=== PATIENT | male | born 1990 | race African-American/Black ===

== ENCOUNTER → 2017-05-22 08:52 | Emergency (ER) | payer OTHER ==
[~2017-05-22 08:52] MED LIST: Ondansetron INJ* 2 MG/ML VIAL IV ONE; levETIRAcetam IV* 500 MG/5 ML VIAL ONE
--- NOTE | 2017-05-22 09:39 | ED ---
Seizure - HPI Summary HPI Summary: A 27 y/o M presents to ED after a seizure this am upon waking up and again at work onset [employer], unwitnessed fist seizure however witnessed second seizure as someone called EMS. Brought in via ambulance. In ED, pt states he feels OK. Denies biting his tongue. 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 Recent med change from 500mg of Keppra to 1,000mg of Keppra at last visit in ED ~[address] Kyle, but has not in "a long time." States he did not take take his medication this morning after his first seizure however after being asked a second time states he did take his medication this morning. Last visit ~1 month ago Keppra level was low and only 3.2. Complains of some nausea at this time and an abrasion to his left face from fall. Unsure what he hit it on. Denies any other symptoms. Is A&Ox3. No other PMHx besides seizures. Denies drug, tobacco or alcohol abuse besides marijuana. Unknown etiology of his seizures. - History Of Current Complaint Chief Complaint: EDSeizure Time Seen by Provider: 05/22/17 09:11 Hx Obtained From: Patient, EMS Onset/Duration: Sudden Onset, Lasting Minutes Severity Of Seizure: Self-Limited Character: Generalized Clonic-Tonic Aggravating Factor(s): Meds Non-compliant, Other - possible exposure to cleaning chemicals at work Alleviating Factor(s): Spontaneous Resolution Related History: Similar Episode/Dx As - prior seizures - Allergies/Home Medications Allergies/Adverse Reactions: Allergies Allergy/AdvReac Type Severity Reaction Status Date / Time No Known Allergies Allergy Verified 04/02/17 12:36 PMH/Surg Hx/FS Hx/Imm Hx Endocrine/Hematology History: Denies: Hx Diabetes, Hx Anemia Cardiovascular History: Denies: Hx Hypertension Neurological History: Reports: Hx Seizures, Other Neuro Impairments/Disorders - HX OF SEIZURES - Surgical History Surgery Procedure, Year, and Place: none - Immunization History Date of Tetanus Vaccine: 2006 Date of Influenza Vaccine: 2011 Immunizations Up to Date: Yes Infectious Disease History: Yes Infectious Disease History: Denies: Traveled Outside the [place] in Last 30 Days - Family History Known Family History: Negative: Cardiac Disease, Hypertension - Social History Alcohol Use: None Hx Substance Use: Yes Substance Use Type: Reports: Marijuana Hx Tobacco Use: No Smoking Status (MU): Never Smoked Tobacco Review of Systems Constitutional: Negative Eyes: Negative ENT: Negative Cardiovascular: Negative Respiratory: Negative Positive: Nausea Musculoskeletal: Negative Positive: Headache All Other Systems Reviewed And Are Negative: Yes Physical Exam Triage Information Reviewed: Yes Vital Signs On Initial Exam: Initial Vitals Temp Pulse Resp BP Pulse Ox 99.4 F 84 18 109/66 98 05/22/17 09:02 05/22/17 09:02 05/22/17 09:02 05/22/17 09:02 05/22/17 09:02 Vital Signs Reviewed: Yes Appearance: Positive: No Pain Distress, Well-Nourished, Ill-Appearing - appears post ictal which improved throughout visit Skin: Positive: Warm, Skin Color Reflects Adequate Perfusion, Dry, Other - abrasion to skin to the left of left eye, no bleeding. no fb.. Negative: Cold, Numb, Cyanosis @, Pale, Erythema @ Head/Face: Positive: Normal Head/Face Inspection Eyes: Positive: Normal, EOMI, YE - slightly constricted however reactive to light, Conjunctiva Clear ENT: Positive: Normal ENT inspection, Hearing grossly normal, Pharynx normal, TMs normal, Other - did not bite tongue Neck: Positive: Supple, Nontender Respiratory/Lung Sounds: Positive: Clear to Auscultation, Breath Sounds Present. Negative: Rales, Rhonchi, Wheezes Cardiovascular: Positive: Normal, RRR, Pulses are Symmetrical in both Upper and Lower Extremities. Negative: Murmur, Rub Abdomen Description: Positive: Nontender, Soft Bowel Sounds: Positive: Present Musculoskeletal: Positive: Normal, Strength/ROM Intact - FROM. Negative: Pain @ Neurological: Positive: Normal - no acute neuro deficits. follows command, Sensory/Motor Intact, Alert, Oriented to Person Place, Time, CN Intact II-III, Facial Symmetry, Speech Normal Psychiatric: Positive: Affect/Mood Appropriate - post ictal at first however re- examined and normal mental status - [place] Coma Scale Best Eye Response: 4 - Spontaneous Best Motor Response: 6 - Obeys Commands Best Verbal Response: 5 - Oriented Coma Scale Total: 15 Diagnostics - Vital Signs Vital Signs Temp Pulse Resp BP Pulse Ox 05/22/17 09:02 99.4 F 84 18 109/66 98 - Laboratory Result Diagrams: 05/22/17 09:35 05/22/17 09:35 Lab Statement: Any lab studies that have been ordered have been reviewed, and results considered in the medical decision making process. - EKG EKG Cardiac Rate: NL EKG Rhythm: Sinus Rhythm EKG Interpretation: early repolarization pattern, read at 0935 EKG Comparison: No Significant Change - to previous EKG on 04/02/17 Re-Evaluation - Re-Evaluation First Eval Re-Evaluation Time: 11:17 Comment: was much more coherent and less post-ictal. feeling good. updated on lab results. feels better after zofran Second Eval Re-Evaluation Time: 12:15 Change: Improved - doing much better, without complaints, eating and drinking, aware of lab findings and thryroid results. understands and is in agreement with plan. Course/Dx - Course Course Of Treatment: labs and keppra level obtained. given zofran for nausea. seizure care precautions in place. initiated IV acces and placed on patient monitor. EKG obtained and normal without change from previous. Spoke with Dr Kyle who stated to give 500mg IV of Keppra and if labs are in check without other cause of seizure safe to d/c and follow up. Labs unremarkable with slight decrease of .33 TSH, T4 obtained also low. Dr Torres and Saroj do not believe this is the cause of his seizures however does require follow up. Rest of labs normal. Possible medication non compliance as patient has been to ED multiple times with seizures and low Keppra level. Last Keppra level 04/02 was 3.2. Continue Keppra 1000mg at home. Level was checked, pending results. Patient improved throughout ED stay. Aware of worsening signs and symptoms. In agreement with plan. Follow up [facility] by end of the week. Repeat thyroid tests. Fluids and Keppra. Return if symptoms persist, worsen or return even after medication. - Diagnoses Differential Diagnosis/HQI/PQRI: Positive: Known Seizure Disorder, Other - mediation non compliance seizure, infection Provider Diagnoses: Seizure - Physician Notifications Discussed Care of Patient With: Dr Brian Miramontes Time Discussed With Above Provider: 10:10 Instructed by Provider To: Other - give Keppra IV 500mg and follow up, if no other obvious sign of cause of seizure besides medication non compliance and if patient is stable Discharge - Discharge Plan Condition: Stable Disposition: HOME Patient Education Materials: Recurrent Seizures in Adults (ED) Referrals: No Primary Care Phys,NOPCP [Primary Care Provider] - Ranjit Kyle MD [Medical Doctor] - [facility] [Outside] Additional Instructions: Take medication Keppra as directed, do not miss a dose. Follow up and make appointment with Dr Kyle. Follow up with primary care doctor for re-check on thyroid levels by the end of the week. If you have another seizure or recurrent seizure, new or worsening symptoms, please seek medical attention and return to ED promptly.
[2017-05-22 09:52] LABS: Hematocrit 42 % (42-52); Hemoglobin 13.8 g/dl (14.0-18.0); Mean Corpuscular HGB Conc 33 g/dl (31-36); Mean Corpuscular Hemoglobin 31 pg (27-31); Mean Corpuscular Volume 95 fL (80-94); Mean Platelet Volume 7 um3 (7.4-10.4); Red Blood Count 4.41 10^6/ul (4.0-5.4); Red Cell Distribution Width 13 % (10.5-15); White Blood Count 6.8 10^3/ul (3.5-10.8)
[2017-05-22 10:05] LABS: Albumin 3.9 g/dL (3.2-5.2); BUN/Creatinine Ratio 8.6 (8-20); Calcium 8.7 mg/dL (8.6-10.3); EGFR African American 107.4 (>60); EGFR Non-African American 83.5 (>60); Globulin 2.5 g/dL (2-4); Magnesium 1.8 mg/dL (1.9-2.7); Potassium 3.7 mmol/L (3.5-5.0); Total Bilirubin 0.7 mg/dL (0.2-1.0); Total Protein 6.4 g/dL (6.4-8.9)
[2017-05-22 10:39] LABS: TSH (Thyroid Stimulating Horm) 0.33 mcIU/mL (0.34-5.60)
[2017-05-22 13:38] VITALS: BP 143/94
[2017-05-22 13:43] LABS: T4 5.42 mcg/mL (6.09-12.23)
== END | disposition home or self-care (01) ==
LOC: ED 08:52
DX: R56.9 Unspecified convulsions (principal); R51 Headache
CPT/HCPCS: 36415; 80053; 80177; 83605; 83735; 84436; 84443; 85025; 85610; 93005; 96374; 99282; J2405

== ENCOUNTER 2017-11-04 07:07 | Emergency (ER) | payer SELFPAY ==
[2017-11-04] MEDS ORDERED: LORazepam INJ* 2 MG/ML 1 ML VIAL IV PUSH ONE (07:20)
[2017-11-04] MEDS ORDERED: LORazepam INJ* 2 MG/ML 1 ML VIAL ONE (07:20)
[2017-11-04] MEDS ORDERED: levETIRAcetam IV* 1,000 MG in NS 0.9% 100 ML* 100 ML IVPB ONE (07:43)
[2017-11-04 08:01] LABS: ABS Basophils 0 10^3/ul (0-0.2); ABS Eosinophils 0 10^3/ul (0-0.6); ABS Lymphocytes 0.8 10^3/ul (1.0-4.8); ABS Monocytes 0.3 10^3/ul (0-0.8); ABS Neutrophils 11.2 10^3/ul (1.5-7.7); ABS Nucleated RBC 0 10^3/ul; Eosinophil % 0 % (0-6); Hematocrit 43 % (42-52); Hemoglobin 14.2 g/dl (14.0-18.0); Lymphocyte % 6.8 % (25-47); Mean Corpuscular HGB Conc 33 g/dl (31-36); Mean Corpuscular Hemoglobin 30 pg (27-31); Mean Corpuscular Volume 91 fL (80-94); Mean Platelet Volume 8 um3 (7.4-10.4); Nucleated Red Blood Cells % 0; Platelet Count 264 10^3/ul (150-450); Red Blood Count 4.69 10^6/ul (4.0-5.4); Red Cell Distribution Width 14 % (10.5-15); White Blood Count 12.3 10^3/ul (3.5-10.8)
[2017-11-04 08:12] LABS: EGFR Non-African American 57.5 (>60)
--- NOTE | 2017-11-04 12:17 | RAD ---
INDICATION: Seizure. COMPARISON: Comparison is made with a prior CT of the brain from October 27, 2015. TECHNIQUE: Contiguous axial sections of the brain were obtained from the skull base to the vertex without contrast. The patient was unable to cooperate for the study in the exam is limited. FINDINGS: The ventricles, cisterns and sulci are within normal limits. No significant focal abnormality or mass effect is seen. There is no evidence for hemorrhage. No significant focal osseous abnormality is seen. The visualized portion of the paranasal sinuses and mastoid air cells appear clear. IMPRESSION: LIMITED STUDY, NO EVIDENCE FOR ACUTE INTRACRANIAL ABNORMALITY.
--- NOTE | 2017-11-04 12:59 | RAD ---
Indication: Seizure, fever. Single frontal view of the chest performed at 1225 hours was reviewed. Comparison is made with previous exam dated January 10, 2016. No mediastinal shift is noted. Heart is of normal size and configuration. Lung orantes appear clear. IMPRESSION: NO ACTIVE CARDIOPULMONARY DISEASE IS NOTED.
[2017-11-04 14:38] LABS: Urine Appearance Cloudy; Urine Blood Negative (Negative); Urine Color Yellow; Urine Ketones 2+ (Negative); Urine Protein 1+(30 mg/dL) (Negative); Urine Specific Gravity 1.028 (1.010-1.030); Urine Urobilinogen Negative (Negative)
--- NOTE | 2017-11-04 17:55 | ED ---
Booker Talbert Gabriel, scribed for Ben Sorto MD on 11/04/17 at 0742 . Neurological HPI - HPI Summary HPI Summary: This patient is a 27 year old M BIBA to [facility] accompanied by his mother s/p seizure, occurring mid-day on 11/03/17. Patient is currently unresponsive and the history was dictated by his mother. She reports that his has a history of seizures that began when he was 16 but did not become a common occurrence until he was 21. Usually he will have one seizure that lasts 60 seconds and will regain consciousness after, being slightly disoriented. Yesterday differed from his baseline because he had multiple episodes and after he became combative. She states his seizures are accompanied by contraction of his upper extremities , excessive saliva production, and urinary incontinence. Additionally she states he is not taking his mediation as he should be, is binge drinking, smoking marijuana, and not getting proper sleep. Level 5 Caveat: HPI limited due to the patients AMS and unresponsiveness. 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 Hx From Patient Unobtainable Due To: Altered Mental Status Onset/Duration: Started days ago - 1, Still Present Timing: Constant Onset Severity: Moderate Current Severity: Moderate Seizure Severity: Moderate Pain Intensity: 0 Pain Scale Used: 0-10 Numeric Syncope Context: Loss of Consciousness: Yes Associated Signs and Symptoms: Positive: Decreased Level of Consciousness, Incontinent Bladder/Bowel - Allergy/Home Medications Allergies/Adverse Reactions: Allergies Allergy/AdvReac Type Severity Reaction Status Date / Time No Known Allergies Allergy Verified 04/02/17 12:36 Home Medications: Home Medications Azithromycin TAB* [Zithromax TAB (Z-NICHOLAS) 250 mg #6 tabs] 500 mg PO DAILY [History Confirmed 11/04/17] levETIRAcetam TAB* [Keppra TAB*] 1,000 mg PO BID 11/04/17 [History Confirmed 06/14] PMH/Surg Hx/FS Hx/Imm Hx Endocrine/Hematology History: Denies: Hx Diabetes, Hx Anemia Cardiovascular History: Denies: Hx Hypertension Neurological History: Reports: Hx Seizures, Other Neuro Impairments/Disorders - HX OF SEIZURES - Surgical History Surgery Procedure, Year, and Place: none - Immunization History Date of Tetanus Vaccine: 2006 Date of Influenza Vaccine: 2011 Infectious Disease History: No Infectious Disease History: Denies: Traveled Outside the [place] in Last 30 Days - Family History Known Family History: Negative: Cardiac Disease, Hypertension - Social History Lives: With Family Alcohol Use: Occasionally Hx Substance Use: Yes Substance Use Type: Reports: Marijuana Hx Tobacco Use: No Smoking Status (MU): Never Smoked Tobacco Review of Systems - ROS Summary Review of Systems Summary: Level 5 Caveat: ROS limited due to the patients AMS and unresponsiveness. Positive: Fever. Negative: Skin Diaphoresis Negative: Erythema Negative: hematuria Neurological: Other - AMS, Seizure Psychological: Other - unresponsive All Other Systems Reviewed And Are Negative: No Physical Exam - Summary Physical Exam Summary: Appearance: Well-appearing, Well-nourished, solument, not speaking currently, likely postictal Skin: Warm, dry, no evidence of trauma Eyes: Normal ENT: pupils are 2mm bilaterally and reactive to light. There is no gaze deviation at this time Neck: Supple, nontender Respiratory: Clear to auscultation, normal breath sounds Cardiovascular: Normal, normal S1 and S2 Abdomen: Soft, nontender : patient is incontinent currently, consistent with seizure activity. Bowel: Present Musculoskeletal: Normal, Strength/ROM Intact Neurological: limited due to AMS Psychiatric: limited due to AMS Level 5 Caveat: PE limited due to the patients AMS and unresponsiveness. Triage Information Reviewed: Yes Vital Signs On Initial Exam: Initial Vitals Temp Pulse Resp BP Pulse Ox 102.3 F 86 18 130/45 96 11/04/17 07:15 11/04/17 07:15 11/04/17 07:15 11/04/17 07:15 11/04/17 07:15 Vital Signs Reviewed: Yes Completion Of Physical Exam Limited Due To: Altered Mental Status, Level 5 - [place] Coma Scale Coma Scale Total: 11 Diagnostics - Vital Signs Vital Signs Temp Pulse Resp BP Pulse Ox 11/04/17 07:30 97 131/52 95 11/04/17 07:29 20 11/04/17 07:24 130/45 11/04/17 07:23 98 91 11/04/17 07:21 87 97 11/04/17 07:15 102.3 F 86 18 130/45 96 - Laboratory Lab Results: Lab Results 11/04/17 11/04/17 11/04/17 Range/Units 07:17 07:17 07:17 WBC 12.3 H (3.5-10.8) 10^3/ul RBC 4.69 (4.0-5.4) 10^6/ul Hgb 14.2 (14.0-18.0) g/dl Hct 43 (42-52) % MCV 91 (80-94) fL MCH 30 (27-31) pg MCHC 33 (31-36) g/dl RDW 14 (10.5-15) % Plt Count 264 (150-450) 10^3/ul MPV 8 (7.4-10.4) um3 Neut % (Auto) 91.1 H (38-83) % Lymph % (Auto) 6.8 L (25-47) % Haakon % (Auto) 2.0 (1-9) % Eos % (Auto) 0 (0-6) % Baso % (Auto) 0.1 (0-2) % Absolute Neuts (auto) 11.2 H (1.5-7.7) 10^3/ul Absolute Lymphs (auto) 0.8 L (1.0-4.8) 10^3/ul Absolute Monos (auto) 0.3 (0-0.8) 10^3/ul Absolute Eos (auto) 0 (0-0.6) 10^3/ul Absolute Basos (auto) 0 (0-0.2) 10^3/ul Absolute Nucleated RBC 0 10^3/ul Nucleated RBC % 0 INR (Anticoag Therapy) 1.00 (0.77-1.02) Sodium 138 (133-145) mmol/L Potassium 4.1 (3.5-5.0) mmol/L Chloride 103 (101-111) mmol/L Carbon Dioxide 26 (22-32) mmol/L Anion Gap 9 (2-11) mmol/L BUN 22 (6-24) mg/dL Creatinine 1.45 H (0.67-1.17) mg/dL Est GFR ( Amer) 74.0 (>60) Est GFR (Non-Af Amer) 57.5 (>60) BUN/Creatinine Ratio 15.2 (8-20) Glucose 92 (70-100) mg/dL Lactic Acid (0.5-2.0) mmol/L Calcium 9.3 (8.6-10.3) mg/dL Magnesium 2.1 (1.9-2.7) mg/dL Total Bilirubin 1.40 H (0.2-1.0) mg/dL AST 30 (13-39) U/L ALT 19 (7-52) U/L Alkaline Phosphatase 47 (34-104) U/L Total Protein 7.1 (6.4-8.9) g/dL Albumin 4.5 (3.2-5.2) g/dL Globulin 2.6 (2-4) g/dL Albumin/Globulin Ratio 1.7 (1-3) Urine Color Urine Appearance Urine pH (5-9) Ur Specific Cook Sta (1.010-1.030) Urine Protein (Negative) Urine Ketones (Negative) Urine Blood (Negative) Urine Nitrate (Negative) Urine Bilirubin (Negative) Urine Urobilinogen (Negative) Ur Leukocyte Esterase (Negative) Urine WBC (Auto) (Absent) Urine RBC (Auto) (Absent) Urine Bacteria (Absent) Urine Glucose (Negative) Urine Ascorbic Acid (Negative) Urine Opiates Screen (None Detect) Ur Barbiturates Screen (None Detect) Ur Phencyclidine Scrn (None Detect) Ur Amphetamines Screen (None Detect) U Benzodiazepines Scrn (None Detect) Urine Cocaine Screen (None Detect) U Cannabinoids Screen (None Detect) Serum Alcohol < 10 (<10) mg/dL Influenza A (Rapid) (Negative) Influenza B (Rapid) (Negative) 11/04/17 11/04/17 11/04/17 Range/Units 07:17 14:15 14:15 WBC (3.5-10.8) 10^3/ul RBC (4.0-5.4) 10^6/ul Hgb (14.0-18.0) g/dl Hct (42-52) % MCV (80-94) fL MCH (27-31) pg MCHC (31-36) g/dl RDW (10.5-15) % Plt Count (150-450) 10^3/ul MPV (7.4-10.4) um3 Neut % (Auto) (38-83) % Lymph % (Auto) (25-47) % Haakon % (Auto) (1-9) % Eos % (Auto) (0-6) % Baso % (Auto) (0-2) % Absolute Neuts (auto) (1.5-7.7) 10^3/ul Absolute Lymphs (auto) (1.0-4.8) 10^3/ul Absolute Monos (auto) (0-0.8) 10^3/ul Absolute Eos (auto) (0-0.6) 10^3/ul Absolute Basos (auto) (0-0.2) 10^3/ul Absolute Nucleated RBC 10^3/ul Nucleated RBC % INR (Anticoag Therapy) (0.77-1.02) Sodium (133-145) mmol/L Potassium (3.5-5.0) mmol/L Chloride (101-111) mmol/L Carbon Dioxide (22-32) mmol/L Anion Gap (2-11) mmol/L BUN (6-24) mg/dL Creatinine (0.67-1.17) mg/dL Est GFR ( Amer) (>60) Est GFR (Non-Af Amer) (>60) BUN/Creatinine Ratio (8-20) Glucose (70-100) mg/dL Lactic Acid 2.9 H* (0.5-2.0) mmol/L Calcium (8.6-10.3) mg/dL Magnesium (1.9-2.7) mg/dL Total Bilirubin (0.2-1.0) mg/dL AST (13-39) U/L ALT (7-52) U/L Alkaline Phosphatase (34-104) U/L Total Protein (6.4-8.9) g/dL Albumin (3.2-5.2) g/dL Globulin (2-4) g/dL Albumin/Globulin Ratio (1-3) Urine Color Yellow Urine Appearance Cloudy Urine pH 5.0 (5-9) Ur Specific Cook Sta 1.028 (1.010-1.030) Urine Protein 1+(30 mg/dl) H (Negative) Urine Ketones 2+ H (Negative) Urine Blood Negative (Negative) Urine Nitrate Negative (Negative) Urine Bilirubin Negative (Negative) Urine Urobilinogen Negative (Negative) Ur Leukocyte Esterase Negative (Negative) Urine WBC (Auto) Trace(0-5/hpf) (Absent) Urine RBC (Auto) Trace(0-2/hpf) (Absent) Urine Bacteria Absent (Absent) Urine Glucose Negative (Negative) Urine Ascorbic Acid * H (Negative) Urine Opiates Screen None detected (None Detect) Ur Barbiturates Screen None detected (None Detect) Ur Phencyclidine Scrn None detected (None Detect) Ur Amphetamines Screen None detected (None Detect) U Benzodiazepines Scrn None detected (None Detect) Urine Cocaine Screen Presumptive positive H (None Detect) U Cannabinoids Screen Presumptive positive H (None Detect) Serum Alcohol (<10) mg/dL Influenza A (Rapid) (Negative) Influenza B (Rapid) (Negative) 11/04/17 Range/Units 15:51 WBC (3.5-10.8) 10^3/ul RBC (4.0-5.4) 10^6/ul Hgb (14.0-18.0) g/dl Hct (42-52) % MCV (80-94) fL MCH (27-31) pg MCHC (31-36) g/dl RDW (10.5-15) % Plt Count (150-450) 10^3/ul MPV (7.4-10.4) um3 Neut % (Auto) (38-83) % Lymph % (Auto) (25-47) % Haakon % (Auto) (1-9) % Eos % (Auto) (0-6) % Baso % (Auto) (0-2) % Absolute Neuts (auto) (1.5-7.7) 10^3/ul Absolute Lymphs (auto) (1.0-4.8) 10^3/ul Absolute Monos (auto) (0-0.8) 10^3/ul Absolute Eos (auto) (0-0.6) 10^3/ul Absolute Basos (auto) (0-0.2) 10^3/ul Absolute Nucleated RBC 10^3/ul Nucleated RBC % INR (Anticoag Therapy) (0.77-1.02) Sodium (133-145) mmol/L Potassium (3.5-5.0) mmol/L Chloride (101-111) mmol/L Carbon Dioxide (22-32) mmol/L Anion Gap (2-11) mmol/L BUN (6-24) mg/dL Creatinine (0.67-1.17) mg/dL Est GFR ( Amer) (>60) Est GFR (Non-Af Amer) (>60) BUN/Creatinine Ratio (8-20) Glucose (70-100) mg/dL Lactic Acid (0.5-2.0) mmol/L Calcium (8.6-10.3) mg/dL Magnesium (1.9-2.7) mg/dL Total Bilirubin (0.2-1.0) mg/dL AST (13-39) U/L ALT (7-52) U/L Alkaline Phosphatase (34-104) U/L Total Protein (6.4-8.9) g/dL Albumin (3.2-5.2) g/dL Globulin (2-4) g/dL Albumin/Globulin Ratio (1-3) Urine Color Urine Appearance Urine pH (5-9) Ur Specific Cook Sta (1.010-1.030) Urine Protein (Negative) Urine Ketones (Negative) Urine Blood (Negative) Urine Nitrate (Negative) Urine Bilirubin (Negative) Urine Urobilinogen (Negative) Ur Leukocyte Esterase (Negative) Urine WBC (Auto) (Absent) Urine RBC (Auto) (Absent) Urine Bacteria (Absent) Urine Glucose (Negative) Urine Ascorbic Acid (Negative) Urine Opiates Screen (None Detect) Ur Barbiturates Screen (None Detect) Ur Phencyclidine Scrn (None Detect) Ur Amphetamines Screen (None Detect) U Benzodiazepines Scrn (None Detect) Urine Cocaine Screen (None Detect) U Cannabinoids Screen (None Detect) Serum Alcohol (<10) mg/dL Influenza A (Rapid) Negative (Negative) Influenza B (Rapid) Negative (Negative) Result Diagrams: 11/04/17 07:17 11/04/17 07:17 Lab Statement: Any lab studies that have been ordered have been reviewed, and results considered in the medical decision making process. - Radiology CXR Radiology Interpretation Completed By: Radiologist - NO ACTIVE CARDIOPULMONARY DISEASE IS NOTED. ED physician has reviewed this radiology report. - CT CT Brain CT Interpretation Completed By: Radiologist - LIMITED STUDY, NO EVIDENCE FOR ACUTE INTRACRANIAL ABNORMALITY. ED physician has reviewed this radiology report. - EKG 12:00 Cardiac Rate: Tachycardia EKG Rhythm: Sinus Tachycardia EKG Interpretation: early repolarization, no acute ME Re-Evaluation - Re-Evaluation First Eval Change: Improved Second Eval Change: Improved Course/Dx - Course Assessment/Plan: Pt's mental status much improved after workup here in ED. Pt was recently treated for chlamydial infection, which is most likely source of patient's fever. No current penile discharge or sore. Pt denies any headache, neeck pain, neck stiffness, weakness, or numbness and currently feels well. Pt is alert, oriented, and pleasant. No fevers. Pt was evaluated by neurologist Dr. Morrow, we agreed on plan for improved medication compliance and outpatient follow up and also agreed that LP at this time would be inappropriate given vast improvement. Pt and family agree to and understnads dc instructions. - Diagnoses Provider Diagnoses: Seizure disorder - Physician Notifications Discussed Care Of Patient With: Ranjit Morrow Time Discussed With Above Provider: 14:50 Instructed by Provider To: Other - Discussed patient care with Dr. Thomas, neuro. Discharge - Discharge Plan Condition: Improved Disposition: HOME Patient Education Materials: Recurrent Seizures in Adults (ED) Referrals: No Primary Care Phys,NOPCP [Primary Care Provider] - Ranjit Morrow MD [Medical Doctor] - Additional Instructions: PLEASE TAKE YOUR MEDICATIONS DIRECTED PLEASE MAKE AN APPOINTMENT FIRST THING IN THE MORNING TO BE SEEN BY DR. MORROW WITHIN 1-2 WEEKS PLEASE RETURN IMMEDIATELY TO THE ER IF YOU HAVE ANY WORSENING OR CONCERNING SYMPTOMS PLEASE MAKE AN APPOINTMENT TO BE SEEN BY YOUR PRIMARY CARE DOCTOR WITHIN 1 WEEK The documentation as recorded by the Booker platt Gabriel accurately reflects the service I personally performed and the decisions made by me, Ben Sorto MD.
[2017-11-04 18:34] VITALS: BP 116/84
--- NOTE | 2017-11-04 22:04 | CONS ---
NEUROLOGY CONSULTATION: DATE OF CONSULT: 11/04/17 LOCATION: He is in the emergency room. REFERRING PROVIDER: Dr. Sorto. CHIEF COMPLAINT: Seizures. HISTORY OF PRESENT ILLNESS: giles Soler is a 27-year-old gentleman who has a history of epilepsy since he was 16. He apparently had 4 seizures since about 2 in the afternoon yesterday observed by his brother. After the 4th seizure, his mother decided that that was enough and she had him come into the emergency room. Since he has been in the emergency room, he has not had any more seizures. He has been given IV levetiracetam and lorazepam and was pretty sleepy for the last multiple hours. He is now awake and talking and able to provide additional history. His mother says that he does not take his Keppra 500 mg b.i.d. on a regular basis. He saw Dr. Abebe for neurological care years ago, but he has not been to a neurologist for quite a number of years. He has been getting refills of his Keppra by going to the emergency room. He has a bottle that has probably at least 20 tablets in it which was refilled with 60 tablets about 5 weeks ago. He was apparently on Dilantin many years ago when he started having seizures at about 16, but no other anticonvulsants. His seizures sometimes start with a sense of jam vu. Sometimes he just feels somewhat dizzy, but he definitely gets some symptoms which warn him of one coming on. He has had generalized convulsions with jerking of his upper and lower extremities, but no focal seizures that his mother can describe. He is never weak on one side after he recovers. There is no olfactory or gustatory hallucinations. There is no clear history of head injury, although he had an abrasion on the side of his head after a seizure a couple of years ago. There is an EEG in the records from 06/21/09 which was interpreted as a normal EEG. He has had a couple of CT scans of the brain overtime. One today looks normal, but there is a fair amount of movement artifact. It was interpreted as a limited study, but no evidence for abnormalities. His mother confirms that he is noncompliant, although he often says that he has taken his medication. She also says he likes go out drinking with the boys and has smoking marijuana which she knows is bad for him. In addition, his tox screen is positive for cocaine upon presentation today. PAST MEDICAL HISTORY: Otherwise unremarkable. He has generally otherwise been in good health. No hospitalizations or operations. MEDICATIONS: His only medication is Keppra 500 mg p.o. b.i.d. ALLERGIES: He does not have any drug allergies. REVIEW OF SYSTEMS: In the patient is negative for headaches, sore throats, fevers, chills, intestinal problems, shortness of breath, or abdominal pain. He has not been sick recently other than the seizures. PHYSICAL EXAM: He is well-nourished and well-hydrated. His temperature earlier today was 102.6 rectally at 8:15 this morning. His heart rate on my examination is in the 70s and seems regular and respiratory rate is easy at about 18. Oxygen saturation is 97% on room air. Blood pressure is running about 110 to 120 systolic over 60 diastolic. Neck is supple and nonpainful. Oral mucosa is moist and no evidence of any trauma or erythema. Head is atraumatic. Lungs are clear bilaterally. Heart is in a regular rate and rhythm without murmurs. There are no rashes noted. Skin is warm and dry. Neurologically, pupils, fundi, and eye movements are normal. Visual orantes are full to confrontation and there is no ptosis. Facial musculature is symmetric. Facial sensation to light touch is symmetric. Palate and tongue appear normal, tongue protrudes in the midline, speech is clear. Motor exam reveals normal strength and tone in the limbs. There is no drift. There is no tremor, myoclonus, or asterixis. Reflexes are hypoactive, but present. Plantars are flexor bilaterally. I did not attempt ambulating. He is a bit sleepy, but he wakes up and is able to maintain attention, concentration and provide a good history. Language is fluent and memory is intact. DIAGNOSTIC STUDIES/LAB DATA: Laboratory data includes the urine tox screen mentioned above, otherwise unremarkable urinalysis other than 2+ ketones. His creatinine was elevated when he came in at 1.45, other creatinines in the records have been normal or slightly elevated. His lactic acid was 2.9 at 7 this morning, total bilirubin 1.4, but liver enzymes are otherwise normal. CBC at 7 this morning notable for elevated white blood cell count at 12.3 with 91% neutrophils. Influenza A and B swabs are negative. 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 It sounds like he has been noncompliant for a long time. He had a fever this morning which we should recheck, because he has no other signs or symptoms to suggest an infectious illness. His lactic acid was explainable by the seizure and the elevated white count could be from the seizures too. If his temperatures come down and there are no other signs of infection, I think he can be discharged home. He has been given Keppra here in the emergency room and he seems to be coming around. I explained to Eulogio and his mother that there are other anticonvulsants and perhaps one that can be taken at a once a day basis, he might be better served by in terms of compliance. I offered him to see me in follow up in my office and his mother would like that to happen and Eulogio agreed. He can be discharged for now on Keppra 500 mg b.i.d. with referral for followup in my office. I discussed my impression with Dr. Sorto. [id number]/[facility] #: [id number] ELIZ
== END 2017-11-04 18:33 | disposition home or self-care (01) ==
LOC: ED 07:07
DX: G40.909 Epilepsy, unspecified, not intractable, without status epilepticus (principal); R41.82 Altered mental status, unspecified
CPT/HCPCS: 36415; 70450; 71045; 80053; 80177; 80307; 80320; 81003; 81015; 83605; 83735; 85025; 85610; 87502; 93005; 96374; 99284; G0480; J2060

== ENCOUNTER 2018-04-03 10:08 | Emergency (ER) | payer OTHER ==
[2018-04-03] MEDS ORDERED: NS 0.9% 1000 ML* 1,000 ML IV ONE (10:18)
[2018-04-03 10:37] LABS: ABS Basophils 0 10^3/ul (0-0.2); ABS Eosinophils 0.1 10^3/ul (0-0.6); ABS Lymphocytes 1.4 10^3/ul (1.0-4.8); ABS Monocytes 0.2 10^3/ul (0-0.8); ABS Neutrophils 2.6 10^3/ul (1.5-7.7); ABS Nucleated RBC 0 10^3/ul; Eosinophil % 2.1 % (0-6); Hematocrit 43 % (42-52); Hemoglobin 14.2 g/dl (14.0-18.0); Mean Corpuscular HGB Conc 33 g/dl (31-36); Mean Corpuscular Hemoglobin 31 pg (27-31); Mean Corpuscular Volume 94 fL (80-94); Mean Platelet Volume 7.5 um3 (7.4-10.4); Nucleated Red Blood Cells % 0; Platelet Count 233 10^3/ul (150-450); Red Blood Count 4.56 10^6/ul (4.0-5.4); Red Cell Distribution Width 14 % (10.5-15); White Blood Count 4.4 10^3/ul (3.5-10.8)
[2018-04-03 10:48] LABS: INR 0.94 (0.77-1.02)
[2018-04-03 11:00] LABS: EGFR Non-African American 69.1 (>60)
--- NOTE | 2018-04-03 11:01 | RAD ---
HISTORY: Seizure COMPARISONS: November 04, 2017 VIEWS: 1: frontal portable view of the chest at 10:47 AM FINDINGS: LINES AND TUBES: None. CARDIOMEDIASTINAL SILHOUETTE: The cardiomediastinal silhouette is normal for portable technique. PLEURA: The costophrenic angles are sharp. No pleural abnormalities are noted. LUNG PARENCHYMA: The lungs are clear. ABDOMEN: The upper abdomen is clear. There is no subphrenic gas. BONES AND SOFT TISSUES: No bone or soft tissue abnormalities are noted. IMPRESSION: NO ACTIVE CARDIOPULMONARY DISEASE.
[2018-04-03] MEDS ORDERED: levETIRAcetam TAB* 500 MG PO ONE (11:04)
[2018-04-03] MEDS ORDERED: Ondansetron ODT TAB* 4 MG PO ONE (12:18)
[2018-04-03 12:38] LABS: Urine Appearance Clear; Urine Blood Negative (Negative); Urine Color Yellow; Urine Ketones Negative (Negative); Urine Protein Negative (Negative); Urine Specific Gravity 1.014 (1.010-1.030); Urine Urobilinogen Negative (Negative)
--- NOTE | 2018-04-03 13:10 | ED ---
Brett Talbert Tiffany, scribed for Campos Cottrell MD on 04/03/18 at 1030 . Neurological HPI - HPI Summary HPI Summary: 28 year old M ABDOUL to [facility] complains of seizure that happened this morning and has since resolved. Patient does not know how long seizure lasted. He reports bite on his lower lip. Has hx seizure. Taking Keppra, did not take Keppra this morning. Last seizure was [address] Kyle is patient's neurologist. - History of Current Complaint Stated Complaint: SEIZURE Time Seen by Provider: 04/03/18 10:18 Hx Obtained From: Patient Onset/Duration: Sudden Onset, Started minutes ago - this morning, Resolved - Allergy/Home Medications Allergies/Adverse Reactions: Allergies Allergy/AdvReac Type Severity Reaction Status Date / Time No Known Allergies Allergy Verified 04/02/17 12:36 PMH/Surg Hx/FS Hx/Imm Hx Previously Healthy: No Endocrine/Hematology History: Denies: Hx Diabetes, Hx Anemia Cardiovascular History: Denies: Hx Hypertension Neurological History: Reports: Hx Seizures - Surgical History Surgery Procedure, Year, and Place: none - Immunization History Date of Tetanus Vaccine: 2006 Date of Influenza Vaccine: 2011 Infectious Disease History: No Infectious Disease History: Denies: Traveled Outside the [place] in Last 30 Days - Family History Known Family History: Negative: Cardiac Disease, Hypertension - Social History Alcohol Use: Occasionally Hx Substance Use: Yes Substance Use Type: Reports: Marijuana Hx Tobacco Use: No Smoking Status (MU): Never Smoked Tobacco Review of Systems Positive: Other - bite on lower lip Neurological: Other - seizure that happened this morning and has since resolved All Other Systems Reviewed And Are Negative: Yes Physical Exam - Summary Physical Exam Summary: VITAL SIGNS: Reviewed. GENERAL: Patient is a well-developed and nourished male who is lying comfortable in the stretcher. Patient is not in any acute respiratory distress. HEAD AND FACE: No signs of trauma. No ecchymosis, hematomas or skull depressions. No sinus tenderness. EYES: PERRLA, EOMI x 2, No injected conjunctiva, no nystagmus. EARS: Hearing grossly intact. Ear canals and tympanic membranes are within normal limits. MOUTH: There is an abrasion on the left side of the lower lip. NECK: Supple, trachea is midline, no adenopathy, no JVD, no carotid bruit, no c- spine tenderness, neck with full ROM. CHEST: Symmetric, no tenderness at palpation LUNGS: Clear to auscultation bilaterally. No wheezing or crackles. CVS: Regular rate and rhythm, S1 and S2 present, no murmurs or gallops appreciated. ABDOMEN: Soft, non-tender. No signs of distention. No rebound no guarding, and no masses palpated. Bowel sounds are normal. EXTREMITIES: FROM in all major joints, no edema, no cyanosis or clubbing. NEURO: Alert and oriented x 3. No acute neurological deficits. Speech is normal and follows commands. SKIN: Dry and warm Triage Information Reviewed: Yes Vital Signs On Initial Exam: Initial Vitals Temp Pulse Resp BP Pulse Ox 96.5 F 82 18 131/82 98 04/03/18 10:17 04/03/18 10:17 04/03/18 10:17 04/03/18 10:17 04/03/18 10:17 Vital Signs Reviewed: Yes Diagnostics - Vital Signs Vital Signs Temp Pulse Resp BP Pulse Ox 04/03/18 10:17 96.5 F 82 18 131/82 98 - Laboratory Lab Results: Lab Results 04/03/18 04/03/18 04/03/18 Range/Units 10:27 10:27 10:27 WBC 4.4 (3.5-10.8) 10^3/ul RBC 4.56 (4.0-5.4) 10^6/ul Hgb 14.2 (14.0-18.0) g/dl Hct 43 (42-52) % MCV 94 (80-94) fL MCH 31 (27-31) pg MCHC 33 (31-36) g/dl RDW 14 (10.5-15) % Plt Count 233 (150-450) 10^3/ul MPV 7.5 (7.4-10.4) um3 Neut % (Auto) 60.3 (38-83) % Lymph % (Auto) 32.0 (25-47) % [place] % (Auto) 4.5 (0-7) % Eos % (Auto) 2.1 (0-6) % Baso % (Auto) 1.1 (0-2) % Absolute Neuts (auto) 2.6 (1.5-7.7) 10^3/ul Absolute Lymphs (auto) 1.4 (1.0-4.8) 10^3/ul Absolute Monos (auto) 0.2 (0-0.8) 10^3/ul Absolute Eos (auto) 0.1 (0-0.6) 10^3/ul Absolute Basos (auto) 0 (0-0.2) 10^3/ul Absolute Nucleated RBC 0 10^3/ul Nucleated RBC % 0 INR (Anticoag Therapy) 0.94 (0.77-1.02) Sodium 139 (139-145) mmol/L Potassium 3.9 (3.5-5.0) mmol/L Chloride 106 (101-111) mmol/L Carbon Dioxide 21 L (22-32) mmol/L Anion Gap 12 H (2-11) mmol/L BUN 13 (6-24) mg/dL Creatinine 1.23 H (0.67-1.17) mg/dL Est GFR ( Amer) 88.9 (>60) Est GFR (Non-Af Amer) 69.1 (>60) BUN/Creatinine Ratio 10.6 (8-20) Glucose 80 (70-100) mg/dL Calcium 8.6 (8.6-10.3) mg/dL Magnesium 2.0 (1.9-2.7) mg/dL Total Bilirubin 0.50 (0.2-1.0) mg/dL AST 17 (13-39) U/L ALT 11 (7-52) U/L Alkaline Phosphatase 44 (34-104) U/L Total Protein 6.7 (6.4-8.9) g/dL Albumin 4.2 (3.2-5.2) g/dL Globulin 2.5 (2-4) g/dL Albumin/Globulin Ratio 1.7 (1-3) Urine Color Urine Appearance Urine pH (5-9) Ur Specific [place] (1.010-1.030) Urine Protein (Negative) Urine Ketones (Negative) Urine Blood (Negative) Urine Nitrate (Negative) Urine Bilirubin (Negative) Urine Urobilinogen (Negative) Ur Leukocyte Esterase (Negative) Urine Glucose (Negative) Urine Ascorbic Acid (Negative) Serum Alcohol < 10 (<10) mg/dL 04/03/18 Range/Units 12:11 WBC (3.5-10.8) 10^3/ul RBC (4.0-5.4) 10^6/ul Hgb (14.0-18.0) g/dl Hct (42-52) % MCV (80-94) fL MCH (27-31) pg MCHC (31-36) g/dl RDW (10.5-15) % Plt Count (150-450) 10^3/ul MPV (7.4-10.4) um3 Neut % (Auto) (38-83) % Lymph % (Auto) (25-47) % [place] % (Auto) (0-7) % Eos % (Auto) (0-6) % Baso % (Auto) (0-2) % Absolute Neuts (auto) (1.5-7.7) 10^3/ul Absolute Lymphs (auto) (1.0-4.8) 10^3/ul Absolute Monos (auto) (0-0.8) 10^3/ul Absolute Eos (auto) (0-0.6) 10^3/ul Absolute Basos (auto) (0-0.2) 10^3/ul Absolute Nucleated RBC 10^3/ul Nucleated RBC % INR (Anticoag Therapy) (0.77-1.02) Sodium (139-145) mmol/L Potassium (3.5-5.0) mmol/L Chloride (101-111) mmol/L Carbon Dioxide (22-32) mmol/L Anion Gap (2-11) mmol/L BUN (6-24) mg/dL Creatinine (0.67-1.17) mg/dL Est GFR ( Amer) (>60) Est GFR (Non-Af Amer) (>60) BUN/Creatinine Ratio (8-20) Glucose (70-100) mg/dL Calcium (8.6-10.3) mg/dL Magnesium (1.9-2.7) mg/dL Total Bilirubin (0.2-1.0) mg/dL AST (13-39) U/L ALT (7-52) U/L Alkaline Phosphatase (34-104) U/L Total Protein (6.4-8.9) g/dL Albumin (3.2-5.2) g/dL Globulin (2-4) g/dL Albumin/Globulin Ratio (1-3) Urine Color Yellow Urine Appearance Clear Urine pH 7.0 (5-9) Ur Specific [place] 1.014 (1.010-1.030) Urine Protein Negative (Negative) Urine Ketones Negative (Negative) Urine Blood Negative (Negative) Urine Nitrate Negative (Negative) Urine Bilirubin Negative (Negative) Urine Urobilinogen Negative (Negative) Ur Leukocyte Esterase Negative (Negative) Urine Glucose Negative (Negative) Urine Ascorbic Acid * A (Negative) Serum Alcohol (<10) mg/dL Result Diagrams: 04/03/18 10:27 04/03/18 10:27 Lab Statement: Any lab studies that have been ordered have been reviewed, and results considered in the medical decision making process. - Radiology CXR Radiology Interpretation Completed By: Radiologist - NO ACTIVE CARDIOPULMONARY DISEASE. ED physician has reviewed this report. - EKG 10:24 Cardiac Rate: NL - 77 bpm EKG Rhythm: Sinus Rhythm EKG Interpretation: Without any ST elevations. Early repolarization. Normal axis. Re-Evaluation - Re-Evaluation First Eval Re-Evaluation Time: 10:58 Comment: Patient states he is up to date on his tetanus vaccine. Course/Dx - Course Assessment/Plan: This patient is a 28-year-old male who presents to the emergency department with chief complaint of having a seizure. Patient is taking Keppra. 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 Blood work without any significant abnormality except for a carbon dioxide of 21 and a left is 12 and creatinine 1.23. Keppra level pending. Urine toxicology positive for marihuana. In the ED course the patient was given IV fluids. The patient did not take this mornings Keppra dosages therefore he was given 2000 mg since he takes these dose every morning. EKG Impression: normal sinus rhythm at [address] elevations. Chest x-ray impression: no active cardiopulmonary disease. I discussed the case with Dr. Kyle and he recommends to watch the patient for 1-2 hours and if he doesnt have any other seizures he can be discharged home with follow-up at his office. The patient was watched for approximately 3 hours without any further seizures therefore he was discharged home with follow with Dr. Kyle. - Diagnoses Provider Diagnoses: Seizures Discharge - Sign-Out/Discharge Documenting (check all that apply): Discharge/Admit/Transfer - Discharge Plan Condition: Stable Disposition: HOME Patient Education Materials: Recurrent Seizures in Adults (ED) Referrals: Ranjit yKle MD [Medical Doctor] - As Soon As Possible No Primary Care Phys,NOPCP [Primary Care Provider] - Additional Instructions: Call your neurologist, Dr. Kyle, to schedule a follow-up appointment as soon as possible. Return to the Emergency Department for any new or worsening symptoms. - Billing Disposition and Condition Condition: STABLE Disposition: Home The documentation as recorded by the Brett platt Tiffany accurately reflects the service I personally performed and the decisions made by , Campos Cottrell MD.
[2018-04-03 13:35] VITALS: BP 119/73
== END 2018-04-03 13:26 | disposition home or self-care (01) ==
LOC: ED 10:08
DX: G40.909 Epilepsy, unspecified, not intractable, without status epilepticus (principal); Z79.899 Other long term (current) drug therapy
CPT/HCPCS: 36415; 71045; 80053; 80177; 80307; 80320; 81003; 83735; 85025; 85610; 93005; 96360; 99283; A9270-GY; G0480

== ENCOUNTER 2018-05-12 16:19 | Observation (INO) | payer OTHER ==
[2018-05-12] MEDS ORDERED: NS 0.9% 1000 ML* 1,000 ML IV ONE ×2 (17:11→18:55)
[2018-05-12] MEDS ORDERED: Fosphenytoin(*) 1,000 MG in NS 0.9% 50 ML* 50 ML IVPB ONE (17:11)
[2018-05-12] MEDS ORDERED: diPHENhydraMINE IV* 50 MG/ML 1 ml VIAL (BENADRYL) IV ONE (17:17)
[2018-05-12] MEDS ORDERED: Metoclopramide IV* 5 MG/ML 2 ML VIAL IV ONE (17:17)
--- NOTE | 2018-05-12 17:24 | ED ---
Neurological HPI - HPI Summary HPI Summary: This is scribe Nina Michelle documenting for attending Obey Quintero M.D. Pt is a 28 y/o M BIBA who presents to the ED s/p seizures. He states he had 2-3 today with LOC and convulsions. Pt now c/o nausea and headache. He denies any urinary incontinence today, but sometimes has it. Pt takes generic Keppra, and denies missing any doses. Dr. Kyle is his neurologist. Pt denies any alcohol use, but smoking marijuana with the last time being a few days ago. He denies any recent injuries. Pt states hes having difficulty answering these questions, and is aware of the date. - History of Current Complaint Chief Complaint: EDSeizure Stated Complaint: SEIZURE Time Seen by Provider: 05/12/18 16:53 Hx Obtained From: Patient Onset/Duration: Sudden Onset, Started hours ago - 10:00, Resolved Number of Seizures: 2 - 3 on triage Headache Location: Diffuse (Right), Diffuse (Left) Pain Intensity: 0 Pain Scale Used: 0-10 Numeric Character: Other: - Nausea, headache, LOC, convulsion Frequency: Episodes x___ - 2-3 Seizure Character: Total-Clonic Aggravating: Nothing Associated Signs and Symptoms: Positive: Seizure, Nausea/Vomiting. Negative: Incontinent Bladder/Bowel - Allergy/Home Medications Allergies/Adverse Reactions: Allergies Allergy/AdvReac Type Severity Reaction Status Date / Time No Known Allergies Allergy Verified 04/02/17 12:36 PMH/Surg Hx/FS Hx/Imm Hx Endocrine/Hematology History: Denies: Hx Diabetes, Hx Anemia Cardiovascular History: Denies: Hx Hypertension Neurological History: Reports: Hx Seizures - Surgical History Surgery Procedure, Year, and Place: none - Immunization History Date of Tetanus Vaccine: 2006 Date of Influenza Vaccine: 2011 Infectious Disease History: No Infectious Disease History: Denies: Traveled Outside the [place] in Last 30 Days - Family History Known Family History: Negative: Cardiac Disease, Hypertension - Social History Alcohol Use: Occasionally Hx Substance Use: Yes Substance Use Type: Reports: Marijuana Hx Tobacco Use: No Smoking Status (MU): Never Smoked Tobacco Review of Systems Positive: Nausea Negative: incontinence Neurological: Other - Mild confusion, LOC Positive: Headache All Other Systems Reviewed And Are Negative: Yes Physical Exam - Summary Physical Exam Summary: Appearance: Well appearing, no pain distress, smells vomitous Skin: warm, dry, reflects adequate perfusion Head/face: normal Eyes: EOMI, YE ENT: contusion on right side of tongue Neck: supple, non-tender Respiratory: CTA, breath sounds present Cardiovascular: RRR, pulses symmetrical Abdomen: non-tender, soft Bowel Sounds: present Musculoskeletal: normal, strength/ROM intact Neuro: normal, sensory motor intact, A&Ox3 GCS: 0 Triage Information Reviewed: Yes Vital Signs On Initial Exam: Initial Vitals Temp Pulse Resp BP Pulse Ox 99 F 78 16 120/61 96 05/12/18 17:07 05/12/18 17:07 05/12/18 17:07 05/12/18 17:07 05/12/18 17:07 Vital Signs Reviewed: Yes Diagnostics - Vital Signs Vital Signs Temp Pulse Resp BP Pulse Ox 05/12/18 17:07 99 F 78 16 120/61 96 - Laboratory Result Diagrams: 05/12/18 17:35 05/12/18 17:35 Lab Statement: Any lab studies that have been ordered have been reviewed, and results considered in the medical decision making process. - CT Brain CT CT Interpretation: No Acute Changes - 17:12 NO ACUTE INTRACRANIAL FINDINGS. ED physician reviewed radiology report. CT Interpretation Completed By: Radiologist Course/Dx - Course Course Of Treatment: Patient with a history of epilepsy with tonic-clonic seizures presents with same today. He did have 3 separate tonic-clonic episodes by history. There is contusion to the tongue. He was hydrated here in the ER for elevated CPK consistent with the seizures. He was loaded with fosphenytoin given that he states that he has been taking his Keppra appropriately. A level the Keppra was drawn. Neurology was contacted for consultation will see the patient in the hospital. Brain CT is negative and he has been admitted in stable condition. - Diagnoses Provider Diagnoses: Epilepsy, Status epilepticus - Physician Notifications Discussed Care Of Patient With: Lenny Hickman Time Discussed With Above Provider: 17:40 Instructed by Provider To: Admit As Inpatient - Dr. Hickman accepts pt for admission. Discharge - Sign-Out/Discharge Documenting (check all that apply): Patient Departure - Admit - Discharge Plan Condition: Fair Disposition: ADMITTED TO [facility] Referrals: No Primary Care Phys,NOPCP [Primary Care Provider] - - Billing Disposition and Condition Condition: FAIR Disposition: Admitted to [facility]
--- NOTE | 2018-05-12 17:39 | RAD ---
INDICATION: Seizures past medical history significant for seizures. COMPARISON: CT brain November 04, 2017 TECHNIQUE: Noncontrast axial source images were acquired from the skull base to the vertex. FINDINGS: Ventricles/sulci: The ventricles and cisterns are normal in size and configuration for age. Brain parenchyma: There is no focal parenchymal finding, evidence of intracranial mass, or intracranial mass effect. Intracranial hemorrhage:None. Extra-axial spaces: There are no abnormal extra axial fluid collections or evidence of extra-axial mass. Calvarium: There is no calvarial fracture or other calvarial abnormality. Scalp: There is no evidence of scalp or extracalvarial soft tissue abnormality. Paranasal sinuses/mastoid: The paranasal sinuses and mastoid air cells are clear. Other: None. IMPRESSION: NO ACUTE INTRACRANIAL FINDINGS.
[2018-05-12 17:44] LABS: ABS Basophils 0.1 10^3/ul (0-0.2); ABS Eosinophils 0 10^3/ul (0-0.6); ABS Lymphocytes 0.8 10^3/ul (1.0-4.8); ABS Monocytes 0.3 10^3/ul (0-0.8); ABS Neutrophils 6.9 10^3/ul (1.5-7.7); ABS Nucleated RBC 0 10^3/ul; Eosinophil % 0.6 % (0-6); Hematocrit 43 % (42-52); Hemoglobin 14.5 g/dl (14.0-18.0); Lymphocyte % 9.7 % (25-47); Mean Corpuscular HGB Conc 34 g/dl (31-36); Mean Corpuscular Hemoglobin 31 pg (27-31); Mean Corpuscular Volume 92 fL (80-94); Mean Platelet Volume 7.2 um3 (7.4-10.4); Nucleated Red Blood Cells % 0; Platelet Count 286 10^3/ul (150-450); Red Blood Count 4.65 10^6/ul (4.00-5.40); Red Cell Distribution Width 13 % (10.5-15); White Blood Count 8.1 10^3/ul (3.5-10.8)
[2018-05-12 18:05] LABS: EGFR Non-African American 84.8 (>60)
[2018-05-12] MEDS ORDERED: Ondansetron INJ* 2 MG/ML VIAL IV PRN (19:51)
[2018-05-12] MEDS ORDERED: Al Hydrox/Mg Hydrox/Simet LIQ* 30 ML UDC PO PRN (19:51)
[2018-05-12] MEDS ORDERED: Acetaminophen TAB* 325 MG PO PRN (19:51)
[2018-05-12] MEDS: NS 0.9% 1000 ML* 1,000 ML IV SCH (20:51)
--- NOTE | 2018-05-12 23:03 | HP ---
HISTORY AND PHYSICAL: DATE OF ADMISSION: 05/12/18 TIME OF EVALUATION: 1899. PRIMARY CARE PHYSICIAN: The patient does not have a primary care physician. NEUROLOGIST: Ranjit Kyle MD CHIEF COMPLAINT: Seizures. HISTORY OF PRESENT ILLNESS: This is a 28-year-old male with a past medical history of seizure disorder, diagnosed at age 20, followed by Dr. Kyle, presents to the emergency room after having two episodes of seizures. The patient is a poor historian, as he does not clearly know what happened. He states he was in his usual state of health this morning when he was walking outside to go to the [facility] when he felt weird and dizzy and he passed out on the street, his brother found him and called the EMS. He took him to his friend's porch. He was lying down. He just wanted to go to sleep, did not want to go to the hospital and then he had another seizure. He is not sure what kind of seizure he had. He is not sure what kind of seizures he normally has, but he knows he was hot, he went with them to the hospital because he was still feeling very weak, dizzy and hot. Now, he has been having some nausea and vomiting. No abdominal pain, no diarrhea. He had a loose stool yesterday once. No fevers or chills. He states he had a seizure a month ago, came to the emergency room at that time for evaluation. He missed his follow-up appointment with Dr. Kyle, as he states the note in the mail came on the day of his appointment. The patient states he takes his Keppra daily, sometimes he does not always take it in the morning but when he remembers, he does take it eventually. Prior to month ago, his last seizure was 3 months prior to that. No chest pain or shortness of breath. No URI symptoms. No urinary symptoms. The patient states he was not outside for a prolonged period of time. No changes in his appetite. Otherwise, review of systems negative. In the emergency room, patient had labs, imaging. He was given a liter of fluid, 10 mg of Reglan, low-dose fosphenytoin, IV Benadryl, and referred to the hospitalist service for further evaluation. PAST MEDICAL HISTORY: Seizures, diagnosed at age 20, followed by Dr. Kyle. MEDICATIONS: Keppra 2000 mg daily in the morning. ALLERGIES: No known drug allergies. FAMILY HISTORY: No family history of seizures. SOCIAL HISTORY: Patient lives with his parents, his grandparents. 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 He socially drinks alcohol, did not have any last night. He smokes daily. No other illicit drug use. CODE STATUS: Full code. REVIEW OF SYSTEMS: A 14-point review of systems as mentioned in the HPI, otherwise negative. PHYSICAL EXAMINATION GENERAL: No acute distress, resting comfortably in the hallway of the emergency room. VITAL SIGNS: Temp 98.7, pulse rate 85, respiratory rate 16, oxygen saturation 96 % on room air, blood pressure 114/59. HEENT: Head: Normocephalic. Pupils are equal and reactive, anicteric. Oropharynx: Mucous membranes are moist. NECK: Supple. No lymphadenopathy. RESPIRATORY: Clear to auscultation. No wheezing, rhonchi, or rales. CARDIAC: Regular rate and rhythm. Soft systolic murmur heard throughout. ABDOMEN: Soft, nontender, nondistended. EXTREMITIES: No clubbing, cyanosis, or edema. +2 DPs. NEUROLOGIC: Alert and oriented x3. No gross focal neurologic deficits. Negative pronator drift. LABORATORY DATA: White count 8.1, hemoglobin 14.5, hematocrit 43, platelets 286. Sodium 136, potassium 3.8, chloride 103, bicarbonate 24. BUN 13 and creatinine 1.03. His total CK is 402. RADIOGRAPHIC DATA: Head CT, has no acute intracranial findings. ASSESSMENT AND PLAN: This is a 28-year-old male with a past medical history of seizure disorder, presents to the emergency room after having two seizures. 1. Seizures. Assessment: Unclear etiology behind the breakthrough seizures that appeared in the past. He has been noncompliant. When he had a seizure a month ago, he forgot to take his Keppra. He also has not followed up with Dr. Kyle. I doubt it did not seem to be an infectious etiology behind his seizure, nor was he outside to possibly relate heat stroke to this. I suspect he has been noncompliant though he states he has been. I did speak with Dr. Fowler, follow up in the morning for official consult. Plan: We will admit for observation, seizure precautions, neuro checks per her. Recommendation, increase Keppra to 2500 mg p.o. daily in the morning and follow up any other further recommendations. We will follow up on his tox screen as well and alcohol level. Follow up with any further neurology recommendations in the morning 2. FEN. Regular diet. 3. DVT prophylaxis. The patient's score is 0. We will encourage ambulation. 4. Code status. Full code. PATIENT TIME: Greater than 35 minutes was spent doing history and physical, more than half the time was spent in direct patient contact. [id number]/[facility] #: [id number] DILSHADD
[2018-05-13] MEDS: NS 0.9% 1000 ML* 1,000 ML IV SCH (05:17)
[2018-05-13] MEDS ORDERED: CMCS:Levetiracetam XR TAB(NF) 500 MG TAB.XR PO SCH (09:00)
--- NOTE | 2018-05-13 09:28 | DCNOTE ---
Subjective Date of Service: 05/13/18 Interval History: Feels back to normal. He broke his eyeglass frame when he had a seizure yesterday. Objective Active Medications: Acetaminophen (Tylenol Tab*) 650 mg PO Q4H PRN PRN Reason: FEVER/PAIN Last Admin: 05/12/18 20:49 Dose: 650 mg Al Hydrox/Mg Hydrox/Simethicone (Maalox Plus*) 30 ml PO Q6H PRN PRN Reason: INDIGESTION Sodium Chloride (Ns 0.9% 1000 Ml*) 1,000 mls @ 125 mls/hr IV PER RATE FABIÁN Last Admin: 05/13/18 05:17 Dose: 125 mls/hr Levetiracetam (Keppra Xr Tab(Nf)) 2,500 mg PO DAILY [facility]; Protocol Last Admin: 05/13/18 08:19 Dose: 2,500 mg Ondansetron HCl (Zofran Inj*) 4 mg IV Q4H PRN PRN Reason: NAUSEA/VOMITING Vital Signs - 8 hr 05/13/18 07:22 Temperature 98.5 F Pulse Rate 67 Respiratory 20 Rate Blood Pressure 119/76 (mmHg) O2 Sat by Pulse 100 Oximetry Oxygen Devices in Use Now: None Appearance: Alert, sitting up in his bed. In good spirits. Looks comfortable. Eyes: No Scleral Icterus Extremities: No Edema, No Clubbing, Cyanosis, - Skin: No Rash or Ulcers, No Nodules or Sclerosis, - Neurological: Alert and Oriented x 3, NL Sensation Result Diagrams: 05/12/18 17:35 05/12/18 17:35 Assess/Plan/Problems-Billing Assessment: - Patient Problems (1) Seizure disorder Current Visit: No Status: Acute Code(s): G40.909 - EPILEPSY, UNSP, NOT INTRACTABLE, WITHOUT STATUS EPILEPTICUS SNOMED Code(s): 523504312 Comment: Hx about 6 yrs. Pt did knot picker cloth 30 day supply of levetiracetam 04/08 , states he had about a half a bottle at home when he picked up the new supply, and also has about a half a bottle at home now. He takes each daily dose directly out of the pharmacy pilll container. Pt advised to get a seven-day pill container and instructed on how to use it. I advised him not to drive. Status and Disposition: Discharge now. Fup Dr. Kyle. Discussed with Dr. Fowler.
[2018-05-13 12:29] VITALS: BP 115/60
--- NOTE | 2018-05-14 03:10 | DS ---
CC: Dr. Kyle* DISCHARGE SUMMARY: DATE OF ADMISSION: DATE OF DISCHARGE: 05/13/18 HISTORY OF PRESENT ILLNESS: This 28-year-old who presented after a seizure, has a history of seizure disorder of over 6 years. He follows as an outpatient by Dr. Kyle. Apparently, he missed his last appointment with Dr. Kyle. He did pear picker his medications in March at [facility] for a month's supply. He said he had a half a bottle left. He takes his medications directly out of the pharmacy pill bottle every morning. The patient recovered from seizure quite well. Dr. Otero consulted with Dr. Fowler over the phone and his dose of levetiracetam XR was raised to 2500 mg daily. The patient will continue to follow up with Dr. Kyle. FINAL DIAGNOSIS: Seizure disorder. DISCHARGE MEDICATIONS: Levetiracetam XR 500 mg 5 tablets every morning. [id number]/[facility] #: [id number] MTDD
[2018-05-14] MEDS ORDERED: LEVETIRACETAM 750 MG PO SCH (09:00)
== END 2018-05-13 13:55 | disposition home or self-care (01) ==
LOC: ED 16:19 → MEDTELE 19:51
PROVIDERS: ADMIT Pediatrics; ATTEND Internal Medicine
DX: G40.909 Epilepsy, unspecified, not intractable, without status epilepticus (principal); R55 Syncope and collapse; R42 Dizziness and giddiness
CPT/HCPCS: 36415; 70450; 80048; 80177; 80320; 82550; 85025; 86140; 86618; 96365; 96366; 96375; 99285; A9270-GY; G0378; G0480; J1200; J2765; Q2009

== ENCOUNTER 2018-06-29 17:36 | Observation (INO) | payer OTHER ==
[2018-06-29] MEDS ORDERED: Fosphenytoin(*) 1,000 MG in NS 0.9% 50 ML* 50 ML IVPB ONE (17:55)
[2018-06-29] MEDS ORDERED: levETIRAcetam IV* 1,000 MG in NS 0.9% 100 ML* 100 ML IVPB ONE (18:06)
--- NOTE | 2018-06-29 18:09 | ED ---
Syncope/Near Syncope - HPI Summary HPI Summary: Patient is a 33 y/o M BIBA w/ three episodes of seizures today, one around at 0700, another at 1200, and a third at 1645 per patient's friend. Last seizure episode was longest and lasted about 5 minutes. Other episodes lasted about 3 minutes each. Per EMS, patient vomited in ambulance, was incontinent of urine, and postictal. He is noted to experience LOC during these episodes. Patient is on Keppra but reports that he may have missed one dose. In the room, he reports last time he took Keppra was yesterday. On triage, pain is rated 0/10. DOTSON, nausea is noted in room. Patient's friend notes he is sleepier than usual. He reports marijuana usage. - History Of Current Complaint Chief Complaint: EDSeizure Time Seen by Provider: 06/29/18 17:50 Hx Obtained From: Patient, EMS, Other: - patient's friend Onset/Duration: Still Present Timing: Frequency Of Episodes - 3 today, longest lasting 3 minutes Context: Witnessed - friend, Loss Of Consciousness Associated Signs And Symptoms: Vomiting, Other - POSITIVE: incontinence of urine , nausea, postictal DOTSON NEGATIVE: weakness/numbness Frequency: Episodes x___ - 3, Episodes Lasting ____ (in Mins/Days/Weeks/Years) - 3 minutes, longest 5 minutes - Allergies/Home Medications Allergies/Adverse Reactions: Allergies Allergy/AdvReac Type Severity Reaction Status Date / Time No Known Allergies Allergy Verified 06/29/18 18:20 Home Medications: Home Medications Levetiracetam XR TAB(NF) [Keppra XR TAB(NF)] 2,000 mg PO DAILY 06/29/18 [ History Confirmed 06/29/18] PMH/Surg Hx/FS Hx/Imm Hx Endocrine/Hematology History: Denies: Hx Diabetes, Hx Anemia Cardiovascular History: Denies: Hx Hypertension Sensory History: Reports: Hx Contacts or Glasses - glasses, broken during tonic clonic Denies: Hx Hearing Aid Opthamlomology History: Reports: Hx Contacts or Glasses - glasses, broken during tonic clonic Neurological History: Reports: Hx Seizures - Epilepsy Tonic-Clonic, Other Neuro Impairments/Disorders - HX OF SEIZURES - Surgical History Surgery Procedure, Year, and Place: none - Immunization History Date of Tetanus Vaccine: 2006 Date of Influenza Vaccine: 2012 Infectious Disease History: No Infectious Disease History: Denies: Hx Clostridium Difficile, Hx Hepatitis, Hx Human Immunodeficiency Virus (HIV), Hx of Known/Suspected MRSA, Hx Known/Suspected VRE, Traveled Outside the [place] in Last 30 Days - Family History Known Family History: Negative: Cardiac Disease, Hypertension - Social History Alcohol Use: Rare Hx Substance Use: Yes Substance Use Type: Reports: Marijuana Hx Tobacco Use: No Smoking Status (MU): Never Smoked Tobacco Review of Systems Positive: Other - somnolent per patient's friend Positive: Vomiting, Nausea Positive: incontinence - urine Neurological: Other - postictal Positive: Headache, Syncope - three episodes of seizures . Negative: Weakness, Numbness All Other Systems Reviewed And Are Negative: Yes Physical Exam - Summary Physical Exam Summary: Appearance: No pain distress; confused, fatigued. Skin: warm, dry, reflects adequate perfusion Head/face: normal Eyes: EOMI, YE ENT: normal Tongue: tongue contusions noted Neck: supple, non-tender Respiratory: CTA, breath sounds present Cardiovascular: RRR, pulses symmetrical Abdomen: non-tender, soft Bowel Sounds: present Musculoskeletal: normal; strength/ROM intact Neuro: normal, sensory motor intact, A&Ox3 Triage Information Reviewed: Yes Vital Signs On Initial Exam: Initial Vitals Temp Pulse Resp BP Pulse Ox 99.8 F 92 16 116/67 98 06/29/18 17:37 06/29/18 17:37 06/29/18 17:37 06/29/18 17:37 06/29/18 17:37 Vital Signs Reviewed: Yes Diagnostics - Vital Signs Vital Signs Temp Pulse Resp BP Pulse Ox 06/29/18 17:37 99.8 F 92 16 116/67 98 - Laboratory Result Diagrams: 06/29/18 18:03 06/29/18 18:03 Lab Statement: Any lab studies that have been ordered have been reviewed, and results considered in the medical decision making process. Re-Evaluation - Re-Evaluation First Eval Re-Evaluation Time: 18:15 Comment: Discussed plan to admit, patient is agreeable with plan. Course/Dx Course Of Treatment: Patient with a history of epileptic seizures with 3 tonic- clonic seizures throughout the day today. He remains mildly postictal from his most recent. He has evidence of tongue contusion. There are no arthralgias or evidence of dislocated joints. He was not incontinent. On review of records it is demonstrated that he is likely poorly compliant. He also admits to smoking marijuana and has used cocaine in the past. I discussed the case with neurology who suggests IV Keppra despite this being his oral regimen. If he has subsequent seizure we will also give him fosphenytoin. He will be admitted for observation to the hospitalist service. - Diagnoses Differential Diagnosis/HQI/PQRI: Positive: Other - Status epilepticus, compliance issue, drug abuse Provider Diagnoses: Status epilepticus - Physician Notifications Discussed Care of Patient With: Balta Membreno Time Discussed With Above Provider: 18:04 Instructed by Provider To: Other - Dr. Membreno was consulted on patient's case at 18:04. He states patient does not need to be rescanned, suggests admitting for observation. 1809 -- Dr. Gunderson was consulted. Dr. Gunderson agrees to accept patient for admission to [facility]. Discharge - Sign-Out/Discharge Documenting (check all that apply): Patient Departure - admit Signing out patient TO: Vitaly Gunderson Receiving patient FROM: Obey Quintero - Discharge Plan Condition: Fair Disposition: ADMITTED TO [facility] Referrals: No Primary Care Phys,NOPCP [Primary Care Provider] - - Billing Disposition and Condition Condition: FAIR Disposition: Admitted to [facility] - Attestation Statements Document Initiated by Linda: Yes Documenting Scribe: Sam Houston Provider For Whom Linda is Documenting (Include Credential): Obey Quintero MD Scribe Attestation: I, Sam Houston, scribed for Obey Quintero MD on 06/29/18 at 1832. Scribe Documentation Reviewed: Yes Provider Attestation: The documentation as recorded by the Sam platt accurately reflects the service I personally performed and the decisions made by me, Obey Quintero MD
[2018-06-29 18:14] LABS: ABS Basophils 0 10^3/ul (0-0.2); ABS Eosinophils 0 10^3/ul (0-0.6); ABS Lymphocytes 0.5 10^3/ul (1.0-4.8); ABS Monocytes 0.2 10^3/ul (0-0.8); ABS Nucleated RBC 0 10^3/ul; Eosinophil % 0.1 % (0-6); Hematocrit 44 % (42-52); Hemoglobin 14.9 g/dl (14.0-18.0); Lymphocyte % 6.7 % (25-47); Mean Corpuscular HGB Conc 34 g/dl (31-36); Mean Corpuscular Hemoglobin 31 pg (27-31); Mean Corpuscular Volume 92 fL (80-94); Mean Platelet Volume 7.3 um3 (7.4-10.4); Nucleated Red Blood Cells % 0.1; Platelet Count 255 10^3/ul (150-450); Red Blood Count 4.77 10^6/ul (4.00-5.40); Red Cell Distribution Width 13 % (10.5-15); White Blood Count 7.7 10^3/ul (3.5-10.8)
[2018-06-29 18:28] LABS: EGFR Non-African American 67.2 (>60)
[2018-06-29] MEDS: NS 0.9% 1000 ML* 1,000 ML IV SCH ×2 (18:31→19:52)
[2018-06-29] MEDS ORDERED: Ondansetron INJ* 2 MG/ML VIAL IV PRN (18:36)
--- NOTE | 2018-06-29 23:22 | HP ---
CC: Dr. Ranjit Kyle * HISTORY AND PHYSICAL: DATE OF ADMISSION: 06/29/18 PRIMARY CARE PROVIDER: None. PRIMARY NEUROLOGIST: Dr. Ranjit Kyle. ATTENDING PHYSICIAN: Dr. Orlando Gunderson * (dictated by Grace Kimbrough NP). CHIEF COMPLAINT: Three seizures today. HISTORY OF PRESENT ILLNESS: Mr. Soler is a 28-year-old male with past medical history significant for seizure disorder who was last hospitalized on 05/12/17 after having breakthrough seizures. At that time, it was suspected that his breakthrough seizures were likely secondary to noncompliance with his Keppra. The patient was initially diagnosed at age 20 with a seizure disorder, and is followed by Dr. Kyle. The patient presented to the emergency room today after having 3 episodes of seizure at home. According to his girlfriend, he had a seizure at 7 a.m. lasting 3 minutes, a seizure around noon lasting 3 minutes, and a seizure again at 1645 hours lasting approximately 4 to 5 minutes. She reports he had a loss of bladder control during these episodes. The patient also reports having fever and chills since the first seizure in addition to vomiting and abdominal discomfort. Prior to the seizure this morning , he states he was in his usual state of health. Denies any fevers, chills, chest pain, shortness of breath, nausea, vomiting, abdominal pain. He denies any cold symptoms. Prior to that, the patient had had a seizure approximately a month ago. At that time, he was seen in the emergency room and evaluated. He missed a follow-up appointment with Dr. Kyle as he stated he was not notified of the appointment. The patient reported taking his Keppra daily, but was not always taking it in the morning, but was eventually taking it at some point the day when he remembered. Prior to seizure in March, his last seizure was approximately 3 months prior to that. On the patient's last hospitalization , his Keppra was increased to 2500 mg daily. He was supposed to follow up with Dr. Kyle at that time. He had a 30-day supply sent into the pharmacy. At this time, the patient states he has not had his medications for 2 or 3 days. He states he has them waiting for him at [facility], but has not made it there to pick them up. He presented to the emergency room for further evaluation of his symptoms. While in the emergency room, he received a gram of IV Keppra after the case was discussed with Dr. Membreno, who is a neurologist on-call. Additionally, he had labs remarkable for an elevated creatinine of 1.26, total CK of 6638. He had toxicology showing a serum alcohol less than 10. He had no fever, no leukocytosis. Hospitalists were asked to evaluate the patient for admission. PAST MEDICAL HISTORY: Seizures, diagnosed at age 20. PAST SURGICAL HISTORY: None. MEDICATIONS: Home medications include Keppra. The patient reports his dose was 2000 mg oral daily. ALLERGIES: No known drug allergies. FAMILY HISTORY: He denies any significant family history. No family history of seizures. SOCIAL HISTORY: He denies tobacco use, but smokes marijuana daily. He occasionally drinks alcohol. His parents, Sandrita and Murphy Soler, would be his surrogate decision makers at the event he is unable to make decisions for himself. REVIEW OF SYSTEMS: I performed an 11-point review of systems. All the pertinent positives and negatives are mentioned in the history of present illness. The remaining review of systems is negative. PHYSICAL EXAMINATION GENERAL APPEARANCE: The patient is alert, pleasant, appears to be in no acute distress. VITAL SIGNS: Temperature 99.8, heart rate 84, respiratory rate 17, O2 sat 99% on room air, blood pressure 116/67. HEENT: Normocephalic, atraumatic. Pupils are equal and reactive to light. Extraocular movements are intact. Tongue: He is noted to have contusions. RESPIRATORY: There is no accessory muscle use. The lungs are clear to auscultation bilaterally. CARDIOVASCULAR: Regular rate and rhythm. S1, S2 present. There are no murmurs , rubs, or gallops heard. ABDOMEN: Soft with diffuse tenderness, nondistended. There are bowel sounds present. EXTREMITIES: There is no lower extremity edema. DP and PT pulses are 2+ and symmetric. MUSCULOSKELETAL: There is no clubbing or cyanosis noted. He exhibits good strength in all extremities. NEUROLOGICAL: He is alert and oriented, but drowsy. Cranial nerves II through XII are grossly intact. The patient is noted to have some confusion and be fatigued. PSYCHOLOGICAL: He is calm and cooperative. SKIN: There are no rashes or abnormalities seen. LABORATORY DATA: Sodium 137, potassium 4.1, chloride 104, CO2 of 24, BUN 10, creatinine 1.26, glucose 93. Total creatine kinase 6638. White blood cell count 7.7, hemoglobin 14.9, hematocrit 44, platelet count 255. Serum alcohol less than 10. IMPRESSION: Mr. Soler is a 28-year-old male with past medical history significant for seizure disorder. He will be admitted as an observation for recurrent seizures. ASSESSMENT/PLAN: 1. Recurrent seizures. I suspect this is secondary to the patient's medical noncompliance with his Keppra. He should have ran out of his Keppra approximately 2 weeks ago, although he states that he last took it 2 or 3 days ago. The patient is being loaded with one gram of Keppra in the emergency room and then the plan will be to resume him on 2 g of extended release Keppra daily in the morning. If he has no further breakthrough seizures, he can likely be discharged in the morning with plan to follow up with Dr. Kyle at discharge. I question if some of the patient's medical noncompliance that he has underlying depression and the Keppra worsens his depression, this should be considered and addressed at outpatient followup with Dr. Kyle. He will have seizures precautions. We will monitor him initially in ICU. If he has no further seizures, he could be moved to the regular floor. If he does have breakthrough seizures, he will receive a gram of IV fosphenytoin tonight. If he does have recurrent breakthrough seizures, he should be seen in consultation by Neurology tomorrow. At this time, he has no evidence of an infection. He has no leukocytosis and is afebrile. If he has recurrent seizures, we can consider getting a urinalysis or chest x-ray to evaluate for causes of an infection that could be contributing to his seizures. If he has a breakthrough seizure overnight, he should receive one gram of fosphenytoin per Dr. Membreno. 2. Elevated creatinine and total creatine kinase. I suspect this is secondary to his seizure disorder. I am going to give him some gentle IV hydration overnight. We will recheck his labs in the morning. I will recheck CK around midnight. 3. Vomiting. The patient has had no vomiting in the emergency room. He will have antiemetics available as needed. 4. Fluids, electrolytes, and nutrition. Regular diet. 5. Code status. Full code. 6. DVT prophylaxis. He is at low risk and will be encouraged to ambulate. If he is unable to ambulate, he will have SCDs. 7. Disposition. Observation. TIME SPENT: Time for this admission was approximately 60 minutes, greater than half of that was spent with the patient and friend discussing medications, past medical history, the events leading up to his arrival today, performing a physical exam. The case has been reviewed with the attending, Dr. Gunderson, who agrees with the plan of care. Reviewed by RUTHY TORO 07/03/18 1144 [id number] #: [id number] ELIZ
[2018-06-29] MEDS ORDERED: LORazepam INJ* 2 MG/ML 1 ML VIAL IV PRN (23:30)
[2018-06-30] MEDS ORDERED: Acetaminophen TAB* 325 MG PO PRN (00:45)
[2018-06-30 05:53] LABS: EGFR Non-African American 79.4 (>60)
[2018-06-30] MEDS ORDERED: Potassium Chlor TAB* 20 MEQ TAB.ER PO ONE (08:39)
--- NOTE | 2018-06-30 08:45 | PN ---
Subjective Date of Service: 06/30/18 Interval History: NO seizures during the Night, denies any chest pain or shortness of breath. Denies headache or dizziness. Denies abd pain n/v/d. Family History: Unchanged from Admission Social History: Unchanged from Admission Past Medical History: Unchanged from Admission Objective Active Medications: Acetaminophen (Tylenol Tab*) 650 mg PO Q6H PRN PRN Reason: FEVER/PAIN Last Admin: 06/30/18 00:51 Dose: 650 mg Sodium Chloride (Ns 0.9% 1000 Ml*) 1,000 mls @ 75 mls/hr IV PER RATE FABIÁN Last Admin: 06/29/18 19:52 Dose: 75 mls/hr Levetiracetam (Keppra Xr Tab(Nf)) 2,000 mg PO DAILY FABIÁN; Protocol Lorazepam (Ativan Inj*) 0.5 mg IV ONCE PRN PRN Reason: seizure Ondansetron HCl (Zofran Inj*) 4 mg IV Q6H PRN PRN Reason: NAUSEA Potassium Chloride (Klor Con Er Tab*) 40 meq PO ONCE ONE Stop: 06/30/18 08:40 Oxygen Devices in Use Now: None Appearance: appers comfortable resting in bed, no acute distress Eyes: No Scleral Icterus Ears/Nose/Mouth/Throat: Mucous Membranes Moist Neck: NL Appearance and Movements; NL JVP, Trachea Midline Respiratory: Symmetrical Chest Expansion and Respiratory Effort, Clear to Auscultation Cardiovascular: NL Sounds; No Murmurs; No JVD, No Edema Abdominal: NL Sounds; No Tenderness; No Distention Lymphatic: No Auricular Adenopathy Extremities: No Edema Skin: No Rash or Ulcers Neurological: Alert and Oriented x 3 Nutrition: Taking PO's Result Diagrams: 06/29/18 18:03 06/30/18 05:20 Microbiology and Other Data: Microbiology 06/29/18 20:30 Nasal Screen MRSA (PCR) - Final Nasal Mrsa Not Detected Assess/Plan/Problems-Billing Assessment: Mr. Soler is a 28 y.o male with a PMHX significant for SZ who presented to the ER after having 3 Seizures yesterday. Patient states that he ran out of his Keppra and had not taking the Keppra in 2-3 days. - Patient Problems (1) Seizure disorder Status: Acute Code(s): G40.909 - EPILEPSY, UNSP, NOT INTRACTABLE, WITHOUT STATUS EPILEPTICUS SNOMED Code(s): 072841838 Comment: _ Neurology consult -continue kera - follow up with neurology as an outpatient (2) Hypokalemia Status: Acute Code(s): E87.6 - HYPOKALEMIA SNOMED Code(s): 69557589 Comment: K level 3.4 today will give Potassium 40 meq po today (3) Elevated CK Status: Acute Code(s): R74.8 - ABNORMAL LEVELS OF OTHER SERUM ENZYMES SNOMED Code(s): 018746705 Comment: suspect this is related to having 3 seizures yesterday - patient given IV hydration - Level is decreasing - continue with Oral hydration at home (4) DVT prophylaxis Status: Acute Code(s): PSQ5607 - SNOMED Code(s): 143370137 Comment: Ambulate (5) Full code status Status: Acute Code(s): Z78.9 - OTHER SPECIFIED HEALTH STATUS SNOMED Code(s) : 973271277
[2018-06-30] MEDS ORDERED: CMCS:Levetiracetam XR TAB(NF) 500 MG TAB.XR PO SCH (09:00)
[2018-06-30 12:04] VITALS: BP 121/57
[2018-06-30] MEDS ORDERED: NS 0.9% 1000 ML* 1,000 ML IV ONE (13:17)
--- NOTE | 2018-06-30 18:30 | DS ---
CC: Dr. Kyle * DISCHARGE SUMMARY: DATE OF ADMISSION: 06/29/18 DATE OF DISCHARGE: 06/30/18 PROVIDER: Carlie Stephenson NP ATTENDING PHYSICIAN WHILE IN THE HOSPITAL: Dr. Orlando Gunderson* (dictated by Carlie Stephenson NP) PRIMARY CARE PROVIDER: None. PRIMARY NEUROLOGIST: Dr. Kyle. PRIMARY DIAGNOSIS: Seizures. DISCHARGE MEDICATIONS: No new medications. Continued home medications: Keppra 2000 mg p.o. daily. HISTORY OF PRESENT ILLNESS AND HOSPITAL COURSE: Mr. Soler is a 28-year-old male with a past medical history significant for seizures, who was last hospitalized in April 2017 for having breakthrough seizures. At that time, it was suspected that the breakthrough seizures were likely secondary to noncompliance with Keppra. The patient was initially diagnosed at age 20 with seizure disorder and is followed by Dr. Kyle as an outpatient. On the day of admission, the patient had 3 episodes of seizures at home. According to the girlfriend, the patient had a seizure at 7 a.m. lasting approximately 3 minutes, a seizure around noon lasting 3 minutes, and then a seizure again around 4:45 lasting approximately 4 to 5 minutes. She did report loss of bladder control with all of these episodes. The patient denies any recent illnesses. Denied any fever, chills, nausea, vomiting, or diarrhea. Denied any abdominal pain. The patient reports that he was in his usual state of health prior to having seizures on the day of admission. The patient at the time of admission reports taking his Keppra daily, but was not consistently taking it at the same time every day and would eventually take it throughout the day when he remembered to take the medication. The patient reports that he is not taking his Keppra in 2 to 3 days , but reports that it is waiting for him at [facility] to be picked up. So, he presented to the emergency room for further evaluation of 3 episodes of seizures. While in the emergency room, he was given IV Keppra. The case was discussed with Dr. Membreno, the neurologist on-call, who recommended loading with Keppra. The patient did have an elevated CK of 6638 on admission, repeat was 3805. He did receive IV hydration during his hospitalization. The patient was monitored overnight. Seizure precautions were in place. The patient did not have any further seizures. At this time, the patient is stable for discharge home. Mr. Soler will be discharged home. Vital signs are as follows, blood pressure 121/57, pulse of 72, respirations 16 , O2 saturation is 100%, temperature 98.7. DISCHARGE PLAN: Mr. Soler will be discharged back home. Activity as tolerated. He should resume a regular diet. 1. Seizures. The patient was advised to resume his Keppra as previously prescribed. He also was instructed to follow up with Dr. Kyle as scheduled and keep his scheduled appointment for June. The patient was instructed to take his medication daily at the same time every day as he reports he has no ill side effects of taking the Keppra. 2. The patient was also advised not to drive until cleared by Dr. Kyle. 3. Elevated CK. I suspect this is related to his episodes of 3 seizures. The CK was decreasing throughout the hospitalization. The patient did receive IV hydration during this hospitalization. The patient was encouraged to continue oral hydration at home. 4. The patient will be set up with a primary care provider and will be called with his future appointment. He should follow up with Dr. Kyle as scheduled in June. 5. The patient was instructed to return to the emergency room for any chest pain, shortness of breath, or uncontrolled seizures. This is a summarization of his medical hospitalization. If further details are needed, please obtain the entire medical record. TIME SPENT: Time spent on this discharge was 60 minutes, greater than half the time was spent with the patient discussing discharge plans and instructions. CONDITION AT DISCHARGE: Stable. CARLIE STEPHENSON, ZIA [id number]/CPS #: [id number] ELIZ
== END 2018-06-30 15:05 | disposition home or self-care (01) ==
LOC: ED 17:36 → INTOOBSV 18:23 → ICU 18:23 → MEDTELE 06-30 00:30
PROVIDERS: ADMIT Internal Medicine; ATTEND Internal Medicine
DX: G40.909 Epilepsy, unspecified, not intractable, without status epilepticus (principal); E87.6 Hypokalemia; R74.8 Abnormal levels of other serum enzymes; R11.2 Nausea with vomiting, unspecified; R51 Headache; R55 Syncope and collapse
CPT/HCPCS: 36415; 80048; 80177; 80320; 82550; 85025; 87641; 96365; 96366; 96375; 99284; A9270-GY; G0378; G0480

== ENCOUNTER 2019-02-06 06:47 | Emergency (ER) | payer OTHER ==
[2019-02-06] MEDS ORDERED: NS 0.9% 1000 ML** 1,000 ML IV ONE (07:27)
--- NOTE | 2019-02-06 07:44 | ED ---
Syncope/Near Syncope - HPI Summary HPI Summary: This patient is a 28 year old M presenting to [facility] with a chief complaint of 2 seizures since 5:30am. The seizures were witness by the patients girlfriend and she noted the second seizure lasted 2 minutes. The patient has previous medical history of seizures. The patient notes that he had not had any seizures for 1 month prior to today. The patient rates the pain 0/10 in severity. Symptoms aggravated by nothing. Symptoms alleviated by nothing. Patient reports he bit his tongue and his muscles are sore. Per triage, patient notes nausea and vomiting upon arrival to [facility]. Patient takes Keppra daily. - History Of Current Complaint Chief Complaint: EDSeizure Time Seen by Provider: 02/06/19 07:27 Hx Obtained From: Patient Onset/Duration: Sudden Onset, Lasting Minutes, Resolved Timing: Intermittent Episode Lasting - 2 minutes Context: Witnessed Activity At Onset: At Rest Associated Head Trauma: No Aggravating Factor(s): Nothing Alleviating Factor(s): Nothing Associated Signs And Symptoms: Seizure - x2, Vomiting, Other - nausea, bite on tongue, sore muscles Frequency: Episodes x___ - 2, Episodes Lasting ____ (in Mins/Days/Weeks/Years) - 2 minutes - Allergies/Home Medications Allergies/Adverse Reactions: Allergies Allergy/AdvReac Type Severity Reaction Status Date / Time No Known Allergies Allergy Verified 02/06/19 06:52 PMH/Surg Hx/FS Hx/Imm Hx Endocrine/Hematology History: Denies: Hx Diabetes, Hx Anemia Cardiovascular History: Denies: Hx Hypertension Sensory History: Reports: Hx Contacts or Glasses - glasses Denies: Hx Hearing Aid Opthamlomology History: Reports: Hx Contacts or Glasses - glasses Neurological History: Reports: Hx Seizures - Epilepsy Tonic-Clonic, Other Neuro Impairments/Disorders - HX OF SEIZURES - Surgical History Surgery Procedure, Year, and Place: none - Immunization History Date of Tetanus Vaccine: 2006 Date of Influenza Vaccine: 2011 Infectious Disease History: No Infectious Disease History: Denies: Hx Clostridium Difficile, Hx Hepatitis, Hx Human Immunodeficiency Virus (HIV), Hx of Known/Suspected MRSA, Hx Known/Suspected VRE, Traveled Outside the [place] in Last 30 Days - Family History Known Family History: Negative: Cardiac Disease, Hypertension - Social History Alcohol Use: Rare Hx Substance Use: Yes Substance Use Type: Reports: Marijuana Substance Use Comment - Amount & Last Used: daily Hx Tobacco Use: No Smoking Status (MU): Never Smoked Tobacco Have You Smoked in the Last Year: No Review of Systems Negative: Fever ENT: Other - bite on tongue Positive: Vomiting, Nausea Musculoskeletal: Other - sore muscles Positive: Syncope - seizures x2 All Other Systems Reviewed And Are Negative: Yes Physical Exam - Summary Physical Exam Summary: VITAL SIGNS: Reviewed. GENERAL: Patient is a well-developed and nourished MALE who is lying comfortable in the stretcher. Patient is not in any acute respiratory distress. HEAD AND FACE: No signs of trauma. No ecchymosis, hematomas or skull depressions. No sinus tenderness. EYES: PERRLA, EOMI x 2, No injected conjunctiva, no nystagmus. EARS: Hearing grossly intact. Ear canals and tympanic membranes are within normal limits. MOUTH: Oropharynx within normal limits. Bite on tongue. NECK: Supple, trachea is midline, no adenopathy, no JVD, no carotid bruit, no c- spine tenderness, neck with full ROM. CHEST: Symmetric, no tenderness at palpation LUNGS: Clear to auscultation bilaterally. No wheezing or crackles. CVS: Regular rate and rhythm, S1 and S2 present, no murmurs or gallops appreciated. ABDOMEN: Soft, non-tender. No signs of distention. No rebound no guarding, and no masses palpated. Bowel sounds are normal. EXTREMITIES: FROM in all major joints, no edema, no cyanosis or clubbing. NEURO: Alert and oriented x 3. No acute neurological deficits. Speech is normal and follows commands. SKIN: Dry and warm Triage Information Reviewed: Yes Vital Signs On Initial Exam: Initial Vitals Temp Pulse Resp BP Pulse Ox 97.0 F 72 16 133/85 99 02/06/19 06:48 02/06/19 06:48 02/06/19 06:48 02/06/19 06:48 02/06/19 06:48 Vital Signs Reviewed: Yes Diagnostics - Vital Signs Vital Signs Temp Pulse Resp BP Pulse Ox 02/06/19 07:19 80 108/68 99 02/06/19 06:48 97.0 F 72 16 133/85 99 - Laboratory Result Diagrams: 02/06/19 07:45 02/06/19 07:45 Lab Statement: Any lab studies that have been ordered have been reviewed, and results considered in the medical decision making process. - EKG 07:37 Cardiac Rate: NL - at 72 bpm EKG Rhythm: Sinus Rhythm ST Segment: Normal EKG Comparison: No Significant Change - from 01/08/19 Summary of EKG Findings: EKG reveals sinus rhythm at [address] elevations. Similar to EKG on 01/08/19 Course/Dx Assessment/Plan: This patient is a 28-year-old male who presents to the emergency department with chief complaint of having a seizure. Blood work without any significant abnormality. The patient was given his morning dose of Keppra 2500 mg of extended release Keppra. I discussed my physical exam and findings with Dr. Kyle from neurology and he recommends for the patient to be discharged home with follow-up at his office. I discussed all the findings and test results with the patient. Patient was instructed to return to the emergency room immediately if any of the symptoms return worsens. Plan of care was discussed with the patient and understands and agrees. All questions were answered at patient satisfaction. There were no further complaints or concerns. Lung exam before discharge: CTA B/L. Good air exchange. No wheezing or crackles heard. CVS: S1 and S2 present. No murmurs appreciated. Patient is alert and oriented x 3. Patient is hemodynamically stable. Patient will be discharged home with follow up PCP in the next 2-3 days - Diagnoses Provider Diagnoses: Seizure disorder - Physician Notifications Discussed Care of Patient With: Ranjit Kyle Time Discussed With Above Provider: 10:37 Instructed by Provider To: Other - Discussed patient care with Dr. Kyle, neurologist, who advised the patient ressume his medications and be discharged home. Discharge - Sign-Out/Discharge Documenting (check all that apply): Patient Departure - discharge home Patient Received Moderate/Deep Sedation with Procedure: No - Discharge Plan Condition: Stable Disposition: HOME Patient Education Materials: Epilepsy (ED) Referrals: Ranjit Kyle MD [Primary Care Provider] - 1 Day Additional Instructions: Resume taking your medications. Follow up with Dr. Kyle in 1-2 days. Return to the emergency department with any new or worsening symptoms. - Billing Disposition and Condition Condition: STABLE Disposition: Home - Attestation Statements Document Initiated by Scribe: Yes Documenting Scribe: Michaelle Coronadowick Provider For Whom Scribe is Documenting (Include Credential): Campos Cottrell MD Scribe Attestation: Michaelle Talbert, scribed for Campos Cottrell MD on 02/06/19 at 1201. Scribe Documentation Reviewed: Yes Provider Attestation: The documentation as recorded by the scribeMichaelle accurately reflects the service I personally performed and the decisions made by , Campos Cottrell MD Status of Scribe Document: Viewed
[2019-02-06] MEDS ORDERED: levETIRAcetam TAB* 500 MG PO ONE (07:45)
[2019-02-06] MEDS ORDERED: LEVETIRACETAM 500 MG PO ONE ×2 (07:52→08:00)
[2019-02-06 08:00] LABS: ABS Basophils 0 10^3/ul (0-0.2); ABS Eosinophils 0.1 10^3/ul (0-0.6); ABS Lymphocytes 1.3 10^3/ul (1.0-4.8); ABS Monocytes 0.3 10^3/ul (0-0.8); ABS Neutrophils 4.9 10^3/ul (1.5-7.7); ABS Nucleated RBC 0 10^3/ul; Eosinophil % 1.1 %; Hematocrit 46 % (36-46); Hemoglobin 15.7 g/dL (14.0-18.0); Lymphocyte % 19.9 %; Mean Corpuscular HGB Conc 34 g/dL (31-36); Mean Corpuscular Hemoglobin 31 pg (27-31); Mean Corpuscular Volume 92 fL (80-94); Mean Platelet Volume 7.3 fL (7.4-10.4); Nucleated Red Blood Cells % 0.1; Platelet Count 232 10^3/uL (150-450); Red Blood Count 5.03 10^6 /uL (4.18-5.48); Red Cell Distribution Width 13 % (10.5-15); White Blood Count 6.6 10^3/uL (3.5-10.8)
[2019-02-06 08:03] LABS: INR 0.96 (0.77-1.02)
[2019-02-06 08:14] LABS: ALT 12 U/L (7-52); AST 20 U/L (13-39); Albumin 4.5 g/dL (3.2-5.2); Alkaline Phosphatase 52 U/L (34-104); Anion Gap 6 mmol/L (2-11); BUN/Creatinine Ratio 10.8 (8-20); Blood Urea Nitrogen 14 mg/dL (6-24); CO2 Carbon Dioxide 28 mmol/L (22-32); Calcium 9.2 mg/dL (8.6-10.3); Chloride 104 mmol/L (101-111); EGFR African American 78.4 (>60); EGFR Non-African American 64.8 (>60); Globulin 2.3 g/dL (2-4); Glucose 92 mg/dL (70-100); Potassium 3.6 mmol/L (3.5-5.0); Sodium 138 mmol/L (135-145); Total Protein 6.8 g/dL (6.4-8.9)
[2019-02-06 08:20] LABS: Alcohol < 10 mg/dL (<10)
[2019-02-06 08:35] LABS: TSH (Thyroid Stimulating Horm) 0.84 mcIU/mL (0.34-5.60)
[2019-02-06 09:50] LABS: Urine Appearance Clear; Urine Bilirubin Negative (Negative); Urine Blood Negative (Negative); Urine Color Yellow; Urine Glucose Negative (Negative); Urine Ketones 1+ (Negative); Urine Nitrite Negative (Negative); Urine Protein Negative (Negative); Urine Specific Gravity 1.017 (1.010-1.030); Urine Urobilinogen Negative (Negative)
[2019-02-06 10:58] VITALS: BP 106/58
== END 2019-02-06 10:58 | disposition home or self-care (01) ==
LOC: ED 06:47
DX: G40.909 Epilepsy, unspecified, not intractable, without status epilepticus (principal)
CPT/HCPCS: 36415; 80053; 80177; 80320; 81003; 83605; 83735; 84443; 85025; 85610; 93005; 96361; 99283; G0480